=== PATIENT | male | born 1950 | race Caucasian/White ===

== ENCOUNTER → 2020-06-14 | Outpatient (CLI) | payer MEDICARE, MEDICAID ==
--- NOTE | 2020-06-14 15:49 | RAD ---
EXAM: Left lower extremity venous Doppler sonogram. HISTORY: Pain and swelling. TECHNIQUE: Morales scale and color Doppler sonographic evaluation of the left lower extremity veins with spectral waveform analysis was performed. FINDINGS: There is normal color flow, normal compressibility and there are normal spectral waveforms in the common femoral, superficial femoral, popliteal, posterior tibial and greater saphenous veins. IMPRESSION: No Doppler evidence of lower extremity deep venous thrombosis. Electronically signed by: Denise Hutchins MD (06/14/2020 3:47 PM) [facility]
== END ==
LOC: US 14:59
PROVIDERS: ATTEND Internal Medicine
DX: R22.42 Localized swelling, mass and lump, left lower limb (principal)
CPT/HCPCS: 93971

== ENCOUNTER → 2020-08-28 | Outpatient (CLI) | payer MEDICARE, MEDICAID ==
[~2020-08-28] MED LIST: PERFLUTREN PROTEIN-A MICROSPHR 0.22 MG/ML 3 ML VIAL. IV ONE
--- NOTE | 2020-08-28 16:48 | RAD ---
MR#: [id number] Date of Study: 08/28/2020 Ordering Physician: ERIBERTO MACIAS, Referring Physician: ERIBERTO MACIAS, Tech: Toro Ch MBA, RDMS, RVT, RDCS, RTR APPROVED REPORT Patient Location: OUT-PATIENT Indications Rest Pain:Bilaterally VELOCITY AND DOPPLER WAVEFORM ANALYSIS RIGHT cm/secWaveformSeverity LEFT cm/secWaveform Severity dCFA 93.0TriphasicdCFA 97.0Biphasic Prof Fem Art. 41.0BiphasicProf Fem Art. 63.0Biphasic Fem Art Prox. 119.0TriphasicFem Art Prox. 105.0Monophasic Fem Art Mid. 307.0TriphasicFem Art Mid. 225.0Monophasic Fem Art Dist. 60.0TriphasicFem Art Dist. 73.0Monophasic Pop Art(Fossa) 70.0BiphasicPop Art(AK) 75.0Biphasic BORDER MEASURER Prox. 121.0MonophasicPTA Prox. 50.0Monophasic BORDER MEASURER Dist. 90.0MonophasicPTA Dist. 109.0Monophasic SHANTI Prox. 200.0MonophasicATA Prox. 25.0Monophasic DPA 62MonophasicDPA 47Monophasic Findings Grayscale images the bilateral lower extremity arterial vessels demonstrates moderate diffuse atheros clerosis. On the right side there is likely a moderate 50% stenosis involving the SFA. Correlate with clinical examination. Below the knee there is likely greater than 50% stenosis involving the anterior tibial artery. There are monophasic waveforms consistent with probable diffuse atherosclerotic calcificati on. On the left side there is mild stenosis involving the left SFA of less than 50%. There is two-vessel runoff with diminished flow in the anterior tibial artery suggestive of greater than 50% stenosis. The bilateral peroneal vessels are not well visualized. Critical Notification Critical Value: No <Conclusion> 1. Moderate 50% stenosis involving the right SFA, correlate with clinical examination and symptoms 2. Probable greater than 50% stenosis involving the bilateral anterior tibial arteries. Signed by : Alberto Urban, Electronically Approved : 08/28/2020 16:48:02
--- NOTE | 2020-08-28 20:16 | CARD ---
MR#: [id number] Date of Study: 08/28/2020 Ordering Physician: ERIBERTO MACIAS, Referring Physician: ERIBERTO MACIAS Tech: Lurdes Marion [facility] APPROVED REPORT EXAM: Two-dimensional and M-mode echocardiogram with Doppler and color Doppler. Other Information Quality : Technically LimitedHR: 66bpm Rhythm : Pacemaker INDICATION Dyspnea Cardiac Disease: Cardiomyopathy 2D DIMENSIONS RVDd3.1 (2.9-3.5cm)Left Atrium(2D)4.7 (1.6-4.0cm) IVSd1.4 (0.7-1.1cm)Aortic Root(2D)3.6 (2.0-3.7cm) LVDd6.3 (3.9-5.9cm)LVOT Diameter2.5 (1.8-2.4cm) PWd1.4 (0.7-1.1cm)LVDs5.3 (2.5-4.0cm) FS (%) 16.6 %SV69.2 ml LVEF(%)34.0 (>50%) Aortic Valve AoV [place].159.9cm/sAoV VTI32.1cm AO Peak GR.10.2mmHgLVOT [place].95.9cm/s AO Mean GR.5mmHgAVA (VMAX)2.83cm2 Mitral Valve MV E Phewdzzg22.5cm/sMV DECEL [id number] MV A Nqptatsz31.5cm/sE/A Ratio1.2 Tricuspid Valve TR P. [id number]/sTR Peak Gr.19mmHg LEFT VENTRICLE The Left Ventricle is moderately dilated. There is mild concentric left ventricular hypertrophy. The left ventricular systolic function is severely impaired. Estimated ejection fraction 20%. There is g lobal hypokinesis of the left ventricle. RIGHT VENTRICLE The right ventricle is mildly dilated. There is normal right ventricular wall thicknes Systolic funct ion is reduced. ATRIA The left atrium size is normal. The right atrium size is normal. The interatrial septum is intact wit h no evidence for an atrial septal defect or patent foramen ovale as noted on 2-D or Doppler imaging. AORTIC VALVE The aortic valve is normal in structure and function. Doppler and Color Flow revealed no significant aortic regurgitation. There is no significant aortic valvular stenosis. MITRAL VALVE The mitral valve is normal in structure and function. There is no evidence of mitral valve prolapse. There is no mitral valve stenosis. Doppler and Color Flow revealed no mitral valve regurgitation note d. TRICUSPID VALVE The tricuspid valve is normal in structure and function. Doppler and Color Flow revealed no tricuspid valve regurgitation noted. There is no tricuspid valve stenosis. PULMONIC VALVE The pulmonary valve is normal in structure and function. Doppler and Color Flow revealed no pulmonic valvular regurgitation. GREAT VESSELS The aortic root is borderline enlarged. The IVC is normal in size and collapses >50% with inspiration . PERICARDIAL EFFUSION There is no evidence of significant pericardial effusion. Critical Notification Critical Value: No <Conclusion> Technically difficult study. The left ventricular systolic function is severely impaired. Estimated ejection fraction 20%. Pacer lead noted RA/RV. There is no evidence of significant pericardial effusion. There is no evidence of significant pericardial effusion. Signed by : Eriberto Macias, Electronically Approved : 08/28/2020 20:15:32
--- NOTE | 2020-09-04 22:31 | RAD ---
MR#: [id number] Date of Study: 08/28/2020 Ordering Physician: ERIBERTO MACIAS, Referring Physician: ERIBERTO MACIAS, Tech: Toro Ch MBA, RDMS, RVT, RDCS, RTR APPROVED REPORT Patient Location : OUT-PATIENT Findings Bilateral greater saphenous veins have been previously stripped. Bilateral lesser saphenous veins did not show any evidence of reflux. Critical Notification Critical Value: No <Conclusion> 1. Previous bilateral greater saphenous vein stripping 2. Negative for reflux in the bilateral lesser saphenous veins Signed by : Alberto Urban, Electronically Approved : 09/04/2020 22:31:02
== END ==
LOC: ECHO 10:55
PROVIDERS: ATTEND Internal Medicine Cardiovascular Disease
DX: I70.203 Unspecified atherosclerosis of native arteries of extremities, bilateral legs (principal); I51.7 Cardiomegaly; I50.22 Chronic systolic (congestive) heart failure; R60.9 Edema, unspecified
CPT/HCPCS: 93925; 93970; C8929; Q9956